=== PATIENT | male | born 1950 | race Caucasian/White ===

== ENCOUNTER 2018-08-15 14:08 | Emergency (ER) | payer MEDICARE ==
[~2018-08-15] VITALS: Ht 182.9 cm; Wt 86.5 kg
[2018-08-15 14:38] VITALS: BP 135/81
[2018-08-15] MEDS ORDERED: TETanus/Pertussis (Acell)/Diphther VAC/PF (Tdap-Adult) 0.5ml syringe IM ONE (15:35)
[2018-08-15] MEDS ORDERED: silver sulfadiazine cream 50gm TP ONE (15:35)
--- NOTE | 2018-08-15 15:52 | NUR ---
RT HAND DRESSED WITH SILVADENE AND GUAZE WRAP, PT BETTY WELL
== END 2018-08-15 16:04 | disposition home or self-care (01) ==
LOC: ER 14:08
DX: T23.231A Burn of second degree of multiple right fingers (nail), not including thumb, initial encounter (principal); T23.232A Burn of second degree of multiple left fingers (nail), not including thumb, initial encounter; M19.90 Unspecified osteoarthritis, unspecified site; F17.200 Nicotine dependence, unspecified, uncomplicated; Z88.1 Allergy status to other antibiotic agents; X11.8XXA Contact with other hot tap-water, initial encounter; Y93.89 Activity, other specified; Y92.89 Other specified places as the place of occurrence of the external cause; Y99.9 Unspecified external cause status
CPT/HCPCS: 16020; 90471; 90715; 99284